=== PATIENT | female | born 1960 | race Caucasian/White ===

== ENCOUNTER → 2024-04-18 11:32 | Outpatient (REF) | payer OTHER, SELFPAY | LOC: HWRAD 11:32 | PROVIDERS: ATTENDING PHYSICIAN Family Medicine | DX: M25.551 Pain in right hip (principal) | CPT/HCPCS: 73502 ==

== ENCOUNTER → 2024-06-20 14:49 | Outpatient (REF) | payer OTHER, SELFPAY | LOC: HWRCS 14:49 | PROVIDERS: ATTENDING PHYSICIAN Internal Medicine Cardiovascular Disease; FAMILY PHYSICIAN Family Medicine | DX: R53.83 Other fatigue (principal) | CPT/HCPCS: 93306 ==

== ENCOUNTER → 2024-09-11 09:14 | Outpatient (REF) | payer OTHER, SELFPAY | LOC: HWRAD 09:14 | PROVIDERS: ATTENDING PHYSICIAN Nurse Practitioner Family | DX: J06.9 Acute upper respiratory infection, unspecified (principal); M53.3 Sacrococcygeal disorders, not elsewhere classified; W19.XXXA Unspecified fall, initial encounter | CPT/HCPCS: 71046; 72220 ==

== ENCOUNTER 2024-10-09 13:00 | Emergency (ER) | payer OTHER, SELFPAY ==
[2024-10-09 13:00] VITALS: BMI 41.9
[2024-10-09 13:03] VITALS: BP 158/64
--- NOTE | 2024-10-09 15:17 | ED.GENMED ---
History of Present Illness
General
Chief Complaint: Abdominal Pain
Source: patient
Exam Limitations: none
Time Seen by Provider: 10/09/24 15:08
Nursing documentation reviewed up to this point in time: agreed with
History of Present Illness
History of Present Illness:
This is a 64-year-old female with a past medical history of coronary artery disease, hypertension, hyperlipidemia who presents emergency department today with concerns of diarrhea for the past week and abdominal pain for the past 2 days. Patient
states that the pain is felt diffusely but seems to be worse on the left side. She denies any blood in her stools. She denies any fevers or chills. She denies any nausea or vomiting. She notes a decrease appetite. She started taking Imodium
today and states that she has not had any diarrhea. She saw her primary care fighter today who recommended ER evaluation to rule out diverticulitis. Patient does have a past surgical history of appendectomy and tubal ligation but denies any other
surgeries, she denies any recent travel outside the country.
Past History
Past History
ED Past Medical History: CAD, GERD, HTN, Hypercholesterolemia and Other (Sleep apnea)
ED Past Surgical History: Appendectomy and Cardiac
Social History
Tobacco: Non-smoker
Alcohol: None
Review of Systems
Review of Systems
All Other Systems: ROS reviewed and negative except as documented in HPI and ROS
Phy Exam
Physical Exam
Physical Exam:
General: Patient is well appearing and in no acute distress; non-toxic
Skin: Warm and dry, no rashes or lesions
Head: Normocephalic, atraumatic
Eyes: Sclera non-icteric. EOMs intact.
Cardiac: Regular rate and rhythm, no murmur
Peripheral Vascular: No lower extremity swelling or edema
Pulm: Normal respiratory effort
Abdomen: Diffuse abdominal tenderness noted with some guarding, no rebound tenderness, no palpable abdominal masses
Neuro: CN II-XII intact, no focal neurologic deficits.
Psychiatric: Appropriate mood and affect.
Course
Orders/Labs/Results
Orders:
Orders
10/09/24 15:33
0.9% Sodium Chloride 500 ml [Nss] 500 ml IV BOLUS
10/09/24 15:35
CT Abd/pelvis W Iv Cont Urgent
Comment:
Reason For Exam: LLQ pain
Norovirus by PCR Urgent
LINDA Source: Feces/Stool
Specimen Description:
Stool Culture Urgent
LINDA Source: Feces/Stool
Specimen Description:
Acetaminophen [Tylenol] 1,000 mg PO NOW STA
10/09/24 15:48
Complete Blood Count/With Diff Urgent
Comprehensive Metabolic Panel Urgent
Lipase Urgent
10/09/24 15:49
Influenza A+B Rapid Molecular Urgent
LINDA Source: Nasal Swab
Specimen Description:
10/09/24 18:18
Urinalysis Reflex To Culture Urgent
Date Specimen was Collected: 10/09/24
Time Specimen was Collected: 18:17
Urine Microscopic Reflex Cult Urgent
Urine Culture Urgent
LINDA Source: U
Specimen Description:
Date Specimen was Collected: 10/09/24
Time Specimen was Collected: 18:17
10/09/24 19:17
Amoxicillin 875 mg/Clav 125 mg [Augmentin 875 mg/125 mg] 1 tablet PO NOW STA
Abnormal Lab Results
10/09/24 10/09/24
15:48 18:18
Absolute Monos (auto) 0.7 H 10^3/uL
(0.1-0.6)
Glucose 148 H mg/dl
(70-99)
Total Bilirubin 3.0 H mg/dl
(0.2-1.3)
Urine Ketones Trace A
(Negative)
Ur Occult Blood Reflex Trace A
(Negative)
Urine Bilirubin 1+ A
(Negative)
Leukocyte Esterase Rfl 2+ A
(Negative)
Urine WBC (Reflex) 30-40 A /HPF
(0-5)
Urine Bacteria (Reflex) Moderate A
(Negative)
10/09/24 15:48
10/09/24 15:48
Vital Signs
Initial and Last Documented VS:
Initial Vital Signs
Temp Pulse Resp BP Pulse Ox
98.4 F 58 18 158/64 96
10/09/24 13:03 10/09/24 13:03 10/09/24 13:03 10/09/24 13:03 10/09/24 13:03
Last Documented Vital Signs
Temp Pulse Resp BP Pulse Ox
98.4 F 58 18 134/62 96
10/09/24 13:03 10/09/24 13:03 10/09/24 13:03 10/09/24 17:00 10/09/24 17:45
MDM/Problems Addressed
Differential Diagnosis Includes:
Differentials include diverticulitis, gastroenteritis, colitis, cholecystitis
MDM/Problems Addressed:
64-year-old female presents emergency department today with concerns of abdominal pain and diarrhea. She has not had a fever. The diarrhea is nonbloody. She denies any recent travel outside the country. She took Imodium with relief. She is sent
to emergency department to rule out diverticulitis. Patient was treated with Tylenol and given IV fluids. Patient was sent for CAT scan which was negative for diverticulitis but did show colitis. I did discuss findings with patient. Patient will
be started on Augmentin. No indication for admission at this time. Return precautions discussed. Indications for further workup at this time. Case reviewed with my attending.
Chronic conditions affecting care:
N/A
Acute Exacerbation and/or Progression of Chronic Illness:
N/A
*Pulse Oximetry
Patient hypoxic: no
*Critical Care Note
Total Time (30-74mins, 75-104mins- exclusive of procedures): Not Applicable
Data Reviewed
Review of Other/Old Records Reveals: Records (Reviewed discharge summary from 01/03/2023, patient seen for shortness of breath and had bilateral pneumonia)
Source: patient and records
Patient Management
Escalation/DeEscalation of care consider admission/obs:
Case reviewed with my attending, admit not indicated, patient stable for discharge
ED Attending Note
-
Portions of this chart may have been created with voice recognition software.� Occasional wrong word or��sound alike� substitutions may have occurred due to the inherent limitations of voice recognition software.
Discharge Plan
Departure
Patient Disposition: Home (Routine Discharge)
Date of Disposition: 10/09/24
Time of Disposition: 19:10
Patient with high blood pressure during this ER visit?: Yes
Condition: Good
Discharge Problem:
Colitis
Instructions: Colitis, Abdominal Pain, BLOOD PRESSURE
Prescriptions:
New
amoxicillin-pot clavulanate 875-125 mg tablet
1 tab PO BID 10 Days Qty: 20 0RF
No Action
escitalopram oxalate 20 MG tablet
20 mg PO DAILY
furosemide 40 MG tablet
40 mg PO DAILY
atorvastatin 80 MG tablet
80 mg PO DAILY
cetirizine 10 MG tablet
10 mg PO DAILY
aspirin 81 MG tablet,delayed release (DR/EC)
81 mg PO DAILY
potassium chloride [Klor-Con M20] 20 MEQ tablet,ER particles/crystals
20 meq PO DAILY
ezetimibe 10 MG tablet
10 mg PO DAILY
doxycycline monohydrate 100 mg capsule
100 mg PO [id number]
Patient Comments:
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
Toujeo SoloStar U-300 Insulin 300 unit/mL (1.5 mL) insulin pen
25 unit SC HS
hydralazine 25 mg Tablet
25 mg PO BID Qty: 60 0RF
cefuroxime axetil 500 mg Tablet
500 mg PO BID Qty: 4 0RF
prednisone 20 mg Tablet
20 mg PO DAILY Qty: 4 0RF
Rx Instructions:
20 mg dailyX2 days,10mg DailyX 2 days and stop
guaifenesin [Siltussin SA] 100 mg/5 mL Liquid
200 mg PO QID Qty: 0 0RF
benzonatate 100 mg Capsule
100 mg PO TIDPRN PRN (Reason: cough despite robitussin DM) Qty: 30 0RF
clopidogrel 75 MG tablet
75 mg PO DAILY Qty: 90 3RF
pantoprazole 40 MG tablet,delayed release (DR/EC)
40 mg PO DAILY Qty: 90 3RF
insulin lispro 100 unit/mL insulin pen
20 unit SC AC Qty: 0 0RF
Patient Comments:
12/29/22--150-200=2units, 201-250=4units, 251-300=6units, 301-350=8units
albuterol sulfate [ProAir HFA] 90 mcg/actuation Hfa Aerosol Inhaler
2 puff INHALATION R Q6HPRN PRN (Reason: sob) Qty: 1 0RF
Referrals:
Lay Serrato DO [Family Provider] -
Activity Restrictions/Additional Instructions:
Augmentin has been sent to your pharmacy. Please take one tablet twice daily for 10 days.
PLEASE RETURN EMERGENCY DEPARTMENT SHOULD YOU DEVELOP INTRACTABLE NAUSEA OR VOMITING, FEVERS, ACUTE WORSENING OF YOUR PAIN, TROUBLE BREATHING, CHEST PAIN, WEAKNESS IN ONE-SIDED BODY VERSUS OTHER, CONFUSION, OR ANY OTHER SIGNS OR SYMPTOMS CONCERNING
Interventions
Interventions:
*Risk Screen - Suicide Last Done: 10/09/24 13:03
*General Assessment Last Done: 10/09/24 15:46
ED- Fall Risk Assessment Last Done: 10/09/24 16:46
*ED COVID-19 Vaccine History Last Done: 10/09/24 15:46
FM-Mxwkal-Chzlwykfbk Assessment Last Done: 10/09/24 16:46
Discharge Date and Time
Print Language: BELARUSIAN
[2024-10-09 15:49] VITALS: BP 141/66
[2024-10-09] MEDS: NSS 500 IV (15:50)
[2024-10-09] MEDS: TYLENOL 1000 MG PO (15:50)
[2024-10-09 16:00] VITALS: BP 144/56
[2024-10-09 16:00] LABS: % Basophils 0.4 % (0-2); % Eosinophils 2.3 % (0-6); % Immature Granulocytes 0.4 % (0-0.5); % Lymphocytes 27.8 % (20.5-51.1); % Monocytes 9.3 % (1.7-9.3); % Neutrophils 59.8 % (42.2-75.2); Absolute Eosinophils 0.2 10^3/uL (0-0.7); Absolute Lymphocytes 2.1 10^3/uL (1.2-3.4); Absolute Monocytes 0.7 10^3/uL (0.1-0.6); Absolute Neutrophils 4.4 10^3/uL (1.4-6.5); Hemoglobin 12.7 g/dL (12.0-16.0); Mean Corp Hgb Conc. 33.4 g/dL (33.0-37.0); Mean Corpuscular Hgb 30.2 pg (27.0-31.0); Mean Corpuscular Volume 90.3 fL (81.0-99.0); Mean Platelet Volume 9.6 fL (7.4-10.4); Nucleated Red Blood Cells % 0 %; Platelet Count 257 10^3/uL (130-400); Red Blood Cell Count 4.21 10^6/uL (4.20-5.40); Red Cell Dist. Width 13.9 % (11.5-14.5); White Blood Cell Count 7.4 10^3/uL (4.8-10.8)
[2024-10-09 16:19] LABS: ALT (SGPT) 30 U/L (0-35); AST (SGOT) 28 U/L (14-36); Albumin 4.2 g/dl (3.5-5.0); Alkaline Phosphatase 103 U/L (38-126); Blood Urea Nitrogen 10 mg/dl (7-17); Calcium 8.6 mg/dl (8.4-10.2); Carbon Dioxide 29 mmol/L (22-30); Chloride 101 mmol/L (98-107); Estimated Creatinine Clearance 120 ml/min; Glucose 148 mg/dl (70-99); Lipase 30 U/L (23-300); Potassium 3.9 mmol/L (3.5-5.1); Sodium 139 mmol/L (135-145); Total Protein 6.7 g/dl (6.3-8.2); eGFR > 60.00
[2024-10-09 17:00] VITALS: BP 134/62
[2024-10-09 18:29] LABS: Urine Albumin Trace (Neg - Trace); Urine Bilirubin 1+ (Negative); Urine Character Very Cloudy (Clear); Urine Color Yellow; Urine Glucose Negative (Negative); Urine Ketone Trace (Negative); Urine Leukocyte 2+ (Negative); Urine Nitrite Negative (Negative); Urine Occult Blood Trace (Negative); Urine Urobilinogen Negative (Neg - 1+)
[2024-10-09 18:36] LABS: Urine Bacteria Moderate (Negative); Urine Red Blood Cell 0-2 /HPF (0-2); Urine Squamous Cell >30 /LPF (Few); Urine White Cell 30-40 /HPF (0-5)
[2024-10-09] MEDS: AUGMENTIN 875 MG/125 MG 1 TABLET PO (19:50)
== END 2024-10-09 19:54 | disposition home or self-care (01) ==
LOC: EMR 13:00
PROVIDERS: Emergency Medicine; Physician Assistant; EMERGENCY PHYSICIAN Emergency Medicine; FAMILY PHYSICIAN Family Medicine
DX: K52.9 Noninfective gastroenteritis and colitis, unspecified (principal); I25.10 Atherosclerotic heart disease of native coronary artery without angina pectoris; I10 Essential (primary) hypertension; E78.00 Pure hypercholesterolemia, unspecified; K21.9 Gastro-esophageal reflux disease without esophagitis; G47.30 Sleep apnea, unspecified; Z90.49 Acquired absence of other specified parts of digestive tract
CPT/HCPCS: 99284; 96360; 74177; 80053; 81003; 81015; 83690; 85025; 87086; 87502; Q9967

== ENCOUNTER 2024-10-19 12:44 | Emergency (ER) | payer OTHER, SELFPAY ==
[2024-10-19 12:57] VITALS: BP 165/61
--- NOTE | 2024-10-19 13:01 | ED.GENMED ---
ED Provider Triage
<Issa Valera PA-C - Last Filed: 10/19/24 13:02>
-
Patient seen by provider in Triage?: Seen in Triage
Attestation: A medical screening examination has been initiated by a qualified medical provider. Based on the assessment performed at this time, it has been determined that an emergent medical condition may exist and the patient has been informed
that further medical evaluation and possible additional diagnostic testing may be needed.
HPI: 64-year-old female presents for evaluation of cough with yellow-green sputum and occasional wheezing for the past 3 days. Saw her primary care physician earlier in the week and had negative COVID and flu test. Was diagnosed with a viral
syndrome. Symptoms are worsening. Low-grade fever at home. No chest discomfort, mildly short of breath.
GENERAL: Alert , in no apparent distress
EYE: No visual abnormalities.
NECK: Trachea midline
ENT: No visible abnormalities.
LUNGS: No acute respiratory distress
NEUROLOGICAL: Alert and oriented
SKIN: Skin intact. No visible changes.
MUSCULOSKELETAL: Moving extremities normally
PSYCH: Normal and appropriate interaction.
This is a medical evaluation conducted in person to initiate diagnostic evaluation and provide initial therapeutics. Please see further documentation by the treating clinician.
History of Present Illness
<Issa Valera PA-C - Last Filed: 10/19/24 13:02>
General
Chief Complaint: Cold/Flu/URI Symptoms
Time Seen by Provider: 10/19/24 16:03
<Iveth Soto NP - Last Filed: 10/19/24 23:33>
General
Source: patient
Exam Limitations: none
Nursing documentation reviewed up to this point in time: agreed with
History of Present Illness
History of Present Illness:
Patient to ED with complaint of worsening cough, wheezing. Symptoms started Tuesday. She was seen by her provider on Tuesday. COvid and flu neg, no concerning findings. States cough has gotten worse. Brought to ED by spouse for eval. Reports
fever at home, no chills. Denies n/v/d. No cp/pressure.
Past History
<Issa Valera PA-C - Last Filed: 10/19/24 13:02>
Past History
ED Past Medical History: CAD, GERD, HTN, Hypercholesterolemia and Other (Sleep apnea)
ED Past Surgical History: Appendectomy and Cardiac
Social History
Tobacco: Non-smoker
Alcohol: None
Review of Systems
<Iveth Soto [employer] - Last Filed: 10/19/24 23:33>
Review of Systems
Allergies reviewed?: Yes
All Other Systems: ROS reviewed and negative except as documented in HPI and ROS
Constitutional: Reports fever
EENT: Reports no symptoms
Respiratory: Reports cough and trouble breathing
Cardiac: Reports no symptoms
ABD/GI: Reports no symptoms
: Reports no symptoms
Musculoskeletal: Reports no symptoms
Skin: Reports no symptoms
Neurological: Reports no symptoms
Psychiatric: Reports no symptoms
Phy Exam
<Iveth Soto [employer] - Last Filed: 10/19/24 23:33>
General Physical Exam
General Presentation: well appearing and mild distress
General age: appears stated age
General Skin: warm and dry
General Habitus: normal
General Mental: alert
Cardiovascular Exam
Cardiovascular Exam: regular rate/rhythm
Pulmonary Exam
Pulmonary Exam: no respiratory distress
Cough: non productive cough
Breath Sounds: Wheeze: generalized
Musculoskeletal Exam
Musculoskeletal Exam: full ROM and neuro vasc intact
Skin Exam
Skin Exam: normal color, warm/dry and no rash
Psychiatric Exam
Psychiatric Exam: normal mood/affect
Course
<Issa Valera PA-C - Last Filed: 10/19/24 13:02>
Orders/Labs/Results
Orders:
Orders
10/19/24 13:02
Ipratropium/Albuterol Sulfate [Duoneb] 3 ml INH R NOW ONE
CR Chest - 2 Views Urgent
Comment:
Reason For Exam: SOB cough
10/19/24 16:12
Ipratropium/Albuterol Sulfate [Duoneb] 3 ml .ROUTE .STK-MED ONE
10/19/24 16:14
Ipratropium/Albuterol Sulfate [Duoneb] 3 ml INH R NOW STA
10/19/24 16:15
Dexamethasone Pf [Decadron] 10 mg PO NOW STA
10/19/24 16:39
COVID-19 Antigen Urgent
Source: Nasal Swab
Influenza A+B Rapid Molecular Urgent
LINDA Source: Nasal Swab
Specimen Description:
10/19/24 17:21
Albuterol Sulfate [Ventolin Nebules] 7.5 mg INH R NOW STA
Oseltamivir Phosphate [Tamiflu] 75 mg PO NOW STA
10/19/24 17:55
Acetaminophen [Tylenol] 1,000 mg .ROUTE .STK-MED ONE
10/19/24 18:27
Acetaminophen [Tylenol] 1,000 mg PO NOW STA
Vital Signs
Initial and Last Documented VS:
Initial Vital Signs
Temp Pulse Resp BP Pulse Ox
99.6 F 76 16 165/61 97
10/19/24 12:57 10/19/24 12:57 10/19/24 12:57 10/19/24 12:57 10/19/24 12:57
Last Documented Vital Signs
Temp Pulse Resp BP Pulse Ox
99.6 F 100 18 142/57 95
10/19/24 12:57 10/19/24 18:25 10/19/24 18:25 10/19/24 18:25 10/19/24 18:25
<Iveth Soto [employer] - Last Filed: 10/19/24 23:33>
Orders/Labs/Results
Orders:
Orders
10/19/24 13:02
Ipratropium/Albuterol Sulfate [Duoneb] 3 ml INH R NOW ONE
CR Chest - 2 Views Urgent
Comment:
Reason For Exam: SOB cough
10/19/24 16:12
Ipratropium/Albuterol Sulfate [Duoneb] 3 ml .ROUTE .STK-MED ONE
10/19/24 16:14
Ipratropium/Albuterol Sulfate [Duoneb] 3 ml INH R NOW STA
10/19/24 16:15
Dexamethasone Pf [Decadron] 10 mg PO NOW STA
10/19/24 16:39
COVID-19 Antigen Urgent
Source: Nasal Swab
Influenza A+B Rapid Molecular Urgent
ILNDA Source: Nasal Swab
Specimen Description:
10/19/24 17:21
Albuterol Sulfate [Ventolin Nebules] 7.5 mg INH R NOW STA
Oseltamivir Phosphate [Tamiflu] 75 mg PO NOW STA
10/19/24 17:55
Acetaminophen [Tylenol] 1,000 mg .ROUTE .STK-MED ONE
10/19/24 18:27
Acetaminophen [Tylenol] 1,000 mg PO NOW STA
Vital Signs
Initial and Last Documented VS:
Initial Vital Signs
Temp Pulse Resp BP Pulse Ox
99.6 F 76 16 165/61 97
10/19/24 12:57 10/19/24 12:57 10/19/24 12:57 10/19/24 12:57 10/19/24 12:57
Last Documented Vital Signs
Temp Pulse Resp BP Pulse Ox
99.6 F 100 18 142/57 95
10/19/24 12:57 10/19/24 18:25 10/19/24 18:25 10/19/24 18:25 10/19/24 18:25
<Iveth Soto NP - Last Filed: 10/19/24 23:33>
*Radiology
Radiology exam reviewed: radiology read reviewed
*Pulse Oximetry
Patient hypoxic: no
*Critical Care Note
Total Time (30-74mins, 75-104mins- exclusive of procedures): Not Applicable
<Iveth Soto NP - Last Filed: 10/19/24 23:33>
Update Note
Update Note:
Influenza A pos. Tamiflu started in dept. Given Decadron, duo neb followed by hour long albuterol neb for her wheezing with improvement. SHe will continue nebulizer treatments at home. Given rx for prednisone taper. WIll follow upw tih PCP on
Tuesday Given instructions on s/s to return to ED and she is agreeable to plan.
ED Attending Note
<Issa Valera PA-C - Last Filed: 10/19/24 13:02>
-
Portions of this chart may have been created with voice recognition software.� Occasional wrong word or��sound alike� substitutions may have occurred due to the inherent limitations of voice recognition software.
Discharge Plan
Departure
Patient Disposition: Home (Routine Discharge)
Date of Disposition: 10/19/24
Time of Disposition: 18:00
Patient with high blood pressure during this ER visit?: No
Condition: Good
Covid-19: Not Applicable
Discharge Problem:
Influenza A
Instructions: Flu in adults - Discharge instructions
Prescriptions:
New
oseltamivir [Tamiflu] 75 mg capsule
75 mg PO BID Qty: 10 0RF
albuterol sulfate 2.5 mg /3 mL (0.083 %) solution for nebulization
2.5 mg inhalation Q4H PRN (Reason: shortness of breath or wheezing) Qty: 180 0RF
prednisone 10 mg Tablet
See Rx Instructions .ROUTE .COMPLEX Qty: 45 0RF
Rx Instructions:
Take By Mouth:
50 mg daily x3 days, 40 mg daily x3 days,
30 mg daily x3 days, 20 mg daily x3 days,
10 mg daily x3 days
No Action
escitalopram oxalate 20 MG tablet
20 mg PO DAILY
furosemide 40 MG tablet
40 mg PO DAILY
atorvastatin 80 MG tablet
80 mg PO DAILY
cetirizine 10 MG tablet
10 mg PO DAILY
aspirin 81 MG tablet,delayed release (DR/EC)
81 mg PO DAILY
potassium chloride [Klor-Con M20] 20 MEQ tablet,ER particles/crystals
20 meq PO DAILY
ezetimibe 10 MG tablet
10 mg PO DAILY
doxycycline monohydrate 100 mg capsule
100 mg PO [id number]
Patient Comments:
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
Toujeo SoloStar U-300 Insulin 300 unit/mL (1.5 mL) insulin pen
25 unit SC HS
hydralazine 25 mg Tablet
25 mg PO BID Qty: 60 0RF
cefuroxime axetil 500 mg Tablet
500 mg PO BID Qty: 4 0RF
prednisone 20 mg Tablet
20 mg PO DAILY Qty: 4 0RF
Rx Instructions:
20 mg dailyX2 days,10mg DailyX 2 days and stop
guaifenesin [Siltussin SA] 100 mg/5 mL Liquid
200 mg PO QID Qty: 0 0RF
benzonatate 100 mg Capsule
100 mg PO TIDPRN PRN (Reason: cough despite robitussin DM) Qty: 30 0RF
clopidogrel 75 MG tablet
75 mg PO DAILY Qty: 90 3RF
pantoprazole 40 MG tablet,delayed release (DR/EC)
40 mg PO DAILY Qty: 90 3RF
insulin lispro 100 unit/mL insulin pen
20 unit SC AC Qty: 0 0RF
Patient Comments:
12/29/22--150-200=2units, 201-250=4units, 251-300=6units, 301-350=8units
albuterol sulfate [ProAir HFA] 90 mcg/actuation Hfa Aerosol Inhaler
2 puff INHALATION R Q6HPRN PRN (Reason: sob) Qty: 1 0RF
amoxicillin-pot clavulanate 875-125 mg tablet
1 tab PO BID 10 Days Qty: 20 0RF
Referrals:
Lay Serrato, DO [Family Provider] - Call in 1-3 days for appt
Activity Restrictions/Additional Instructions:
Return to the emergency department immediately for any changes in/worsening of your symptoms.
Interventions
Interventions:
*Risk Screen - Suicide Last Done: 10/19/24 12:59
*General Assessment Last Done: 10/19/24 18:23
*Neglect/Abuse Screening Last Done: 10/19/24 12:59
*ED COVID-19 Vaccine History Last Done: 10/19/24 18:23
*Nursing Disposition Last Done: 10/19/24 18:37
ED- Pulmonary Assessment Last Done: 10/19/24 16:20
Discharge Date and Time
Discharge Date/Time: 10/19/24 18:37
Print Language: CITIZEN OF [place]
[2024-10-19] MEDS: DUONEB 3 ML INH (16:15)
[2024-10-19 16:19] VITALS: BP 151/62
[2024-10-19] MEDS: DECADRON 10 MG PO (16:40)
[2024-10-19 17:10] LABS: COVID-19 Antigen Negative (Negative)
[2024-10-19] MEDS: TAMIFLU 75 MG PO (17:38)
[2024-10-19] MEDS: VENTOLIN NEBULES 7.5 MG INH (17:43)
[2024-10-19 18:25] VITALS: BP 142/57
[2024-10-19] MEDS: TYLENOL 1000 MG PO (18:28)
== END 2024-10-19 18:37 | disposition home or self-care (01) ==
LOC: EMR 12:44
PROVIDERS: Nurse Practitioner; EMERGENCY PHYSICIAN Emergency Medicine; FAMILY PHYSICIAN Family Medicine
DX: J10.1 Influenza due to other identified influenza virus with other respiratory manifestations (principal); I25.10 Atherosclerotic heart disease of native coronary artery without angina pectoris; K21.9 Gastro-esophageal reflux disease without esophagitis; I10 Essential (primary) hypertension; E78.00 Pure hypercholesterolemia, unspecified; G47.30 Sleep apnea, unspecified; Z90.49 Acquired absence of other specified parts of digestive tract
CPT/HCPCS: 99284; 94640; 71046; 87502; 87811

== ENCOUNTER → 2025-02-14 07:04 | Outpatient (REF) | payer OTHER, SELFPAY | LOC: PAVMRI 07:04 | PROVIDERS: ATTENDING PHYSICIAN Orthopaedic Surgery; FAMILY PHYSICIAN Family Medicine | DX: M25.561 Pain in right knee (principal); M17.11 Unilateral primary osteoarthritis, right knee | CPT/HCPCS: 73721 ==

== ENCOUNTER → 2025-05-27 10:59 | Outpatient (REF) | payer MEDICARE, BC, SELFPAY | LOC: HWRAD 10:59 | PROVIDERS: ATTENDING PHYSICIAN Nurse Practitioner Adult Health; FAMILY PHYSICIAN Family Medicine | DX: R05.3 Chronic cough (principal) | CPT/HCPCS: 71046 ==

== ENCOUNTER → 2025-06-04 13:26 | Outpatient (REF) | payer MEDICARE, BC, SELFPAY | LOC: HWRAD 13:26 | PROVIDERS: ATTENDING PHYSICIAN Nurse Practitioner Adult Health; FAMILY PHYSICIAN Family Medicine | DX: R91.1 Solitary pulmonary nodule (principal) | CPT/HCPCS: 71250 ==

== ENCOUNTER 2025-07-29 06:43 | Outpatient (RCR) | payer MEDICARE, BC, SELFPAY | END 2025-07-29 23:59 | disposition home or self-care (01) | LOC: RPT 06:43 | PROVIDERS: ATTENDING PHYSICIAN Internal Medicine Cardiovascular Disease; FAMILY PHYSICIAN Family Medicine | DX: I89.0 Lymphedema, not elsewhere classified (principal); Z73.6 Limitation of activities due to disability; R26.2 Difficulty in walking, not elsewhere classified; R26.89 Other abnormalities of gait and mobility | CPT/HCPCS: 97162; 97530; 97760 ==

== ENCOUNTER → 2025-07-30 08:54 | Outpatient (REF) | payer MEDICARE, BC, SELFPAY | LOC: RAD 08:54 | PROVIDERS: ATTENDING PHYSICIAN Internal Medicine; FAMILY PHYSICIAN Family Medicine | DX: R13.19 Other dysphagia (principal) | CPT/HCPCS: 74246 ==

== ENCOUNTER → 2025-08-07 16:24 | Outpatient (REF) | payer MEDICARE, BC, SELFPAY | LOC: CLAB 16:24 | PROVIDERS: ATTENDING PHYSICIAN Physician Assistant | DX: J32.9 Chronic sinusitis, unspecified (principal) | CPT/HCPCS: 87070; 87147 ==

== ENCOUNTER → 2025-08-13 08:18 | Outpatient (REF) | payer MEDICARE, BC, SELFPAY | LOC: HWRAD 08:18 | PROVIDERS: ATTENDING PHYSICIAN Physician Assistant; FAMILY PHYSICIAN Family Medicine | DX: J32.8 Other chronic sinusitis (principal) | CPT/HCPCS: 70486 ==